=== PATIENT | male | born 1970 | race Caucasian/White ===

== ENCOUNTER 2019-08-16 15:14 | Emergency (ER) | payer BC, OTHER ==
[~2019-08-16] VITALS: Ht 180.3 cm; Wt 68.0 kg
[2019-08-16 15:20] VITALS: BP 138/84
--- NOTE | 2019-08-16 15:39 | NUR ---
Sent by PCP for CT, right hip fracture on out patient Xray. Bilateral hip & leg pain x 1 month. L leg hurts more than R. denies parasthesias. sts tripped in a divet and came down hard on both legs. 09/23 pain.
--- NOTE | 2019-08-16 16:10 | NUR ---
TAKEN TO CT
--- NOTE | 2019-08-16 16:36 | NUR ---
back from ct results pending.
== END 2019-08-16 17:17 | disposition home or self-care (01) ==
LOC: ED 16:55
DX: M25.552 Pain in left hip (principal); R93.6 Abnormal findings on diagnostic imaging of limbs
CPT/HCPCS: 99284

== ENCOUNTER → 2019-09-29 | Outpatient (CLI) | payer OTHER | END | disposition home or self-care (01) | LOC: CFH 12:11 | PROVIDERS: ATTEND Orthopaedic Surgery | DX: M51.36 Other intervertebral disc degeneration, lumbar region (principal) | CPT/HCPCS: 72110 ==

== ENCOUNTER → 2020-09-27 | Outpatient (CLI) | payer OTHER ==
[~2020-09-27] MED LIST: GADOTERATE 7.5 MMOL/15 ML VIAL ONE
== END | disposition home or self-care (01) ==
LOC: RAD 12:17
PROVIDERS: ATTEND Nurse Practitioner Family
DX: R56.9 Unspecified convulsions (principal)
CPT/HCPCS: 70553; A9575

== ENCOUNTER → 2020-09-27 | Outpatient (CLI) | payer OTHER | END | disposition home or self-care (01) | LOC: CARD 09:03 | PROVIDERS: ATTEND Nurse Practitioner Family | DX: R56.9 Unspecified convulsions (principal) | CPT/HCPCS: 95819 ==